=== PATIENT | male | born 1950 | race Caucasian/White ===

== ENCOUNTER → 2016-09-29 | Day surgery (SDC) | payer MEDICARE ==
[2016-09-29] VITALS (8 sets, daily range): BP systolic 78–129; BP diastolic 49–78
[~2016-09-29] VITALS: Ht 170.1 cm; Wt 70.3 kg
[~2016-09-29] MED LIST: ANTIVERT/2525 M1 PO; ASPIR-LOW81 MG PO; BLEPH-10 15 ML15 ML OPH; CARAFATE1 G1 PO; CIPROFLOXACIN500 MG PO; CITALOPRAM20 MG PO; DILT-CD240 MG PO; FISH OIL 10001000 MG PO; LEVOFLOXACIN500 MG PO; LORAZEPAM0.5 MG PO; OMNICEF300 MG PO; TYLENOL W/CODEI1 TA2 PO; VICODIN 5/500 505 MG PO; ZOCOR10 MG PO
--- NOTE | ~2016-09-29 | O ---
[place], [place] OPERATIVE NOTE NAME: HILTON VIDES UNIT #: [id number] ROOM: DOCTOR: ROSALIE MARTIN MD BIRTHDATE: [birth year] DOS: 10/07/2016 PREOPERATIVE DIAGNOSIS: Dysphonia left vocal cord cyst. POSTOPERATIVE DIAGNOSIS: Dysphonia left vocal cord cyst. PROCEDURE: Direct laryngoscopy with excision of left vocal cord cyst. SURGEON: Dr. Martin. ANESTHESIA: General endotracheal. ESTIMATED BLOOD LOSS: Zero. COMPLICATIONS: None. 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 He is being taken to the operating room for direct laryngoscopy with excision of left vocal cord cyst. DESCRIPTION OF PROCEDURE: Following induction of general endotracheal anesthesia, the patient was positioned supine on the OR table and draped in standard fashion for laryngoscopy. A Jennifer Berci laryngoscope was introduced. Examination of the oral cavity, oropharynx and hypopharynx was normal. Laryngeal exam showed a cyst in the mid portion of the left true vocal cord and micro laryngeal instrumentation was used for the excision of the cyst. A sickle knife was used to incise the left vocal cord mucosa. The cystic structure was encountered and marsupialized. No biopsy was obtained. Minimal bleeding was controlled with the application of epinephrine-soaked cottonoids patties. At the end of the case, all instrument and sponge counts were correct. The patient was awakened, extubated and transported to PACU in satisfactory condition. ROSALIE MARTIN MD CM:OPRECORD:OPERATIVE NOTE [id number] ROSALIE MARTIN MD 10/09/16 0819 interface
== END | disposition home or self-care (01) ==
LOC: SDC 09-25 13:15
DX: J38.7 Other diseases of larynx (principal); K21.9 Gastro-esophageal reflux disease without esophagitis; F41.9 Anxiety disorder, unspecified; F32.9 Major depressive disorder, single episode, unspecified; E78.00 Pure hypercholesterolemia, unspecified; Z85.828 Personal history of other malignant neoplasm of skin; N40.0 Benign prostatic hyperplasia without lower urinary tract symptoms

== ENCOUNTER → 2020-03-29 | Outpatient (CLI) | payer MEDICARE | END | disposition home or self-care (01) | LOC: US 03-25 11:40 | DX: N50.82 Scrotal pain (principal) ==

== ENCOUNTER → 2024-05-01 | Day surgery (SDC) | payer MEDICARE ==
[~2024-05-01] VITALS: Ht 167.6 cm; Wt 74.8 kg
[~2024-05-01] MED LIST changes: +Lactated Ringer's Solution 1,000 ML IV ONE; +Lactated Ringer's Solution 500 ML IV ONE; +Lidocaine Hydrochloride 5 ML VIAL IV ONE; +PROPOFOL 200 MG/20 ML VIAL IV ONE
[2024-05-01 12:21] VITALS: BP 112/67
[2024-05-01 12:36] VITALS: BP 117/73
== END | disposition home or self-care (01) ==
LOC: SDC 04-27 09:30
PROVIDERS: ATTEND Surgery
DX: Z12.11 Encounter for screening for malignant neoplasm of colon (principal); K64.8 Other hemorrhoids; E78.00 Pure hypercholesterolemia, unspecified; I10 Essential (primary) hypertension; F41.9 Anxiety disorder, unspecified; Z86.010 Personal history of colon polyps; Z98.890 Other specified postprocedural states; Z88.1 Allergy status to other antibiotic agents; Z79.82 Long term (current) use of aspirin; Z79.899 Other long term (current) drug therapy
CPT/HCPCS: 00812; G0105

== ENCOUNTER 2025-01-16 19:07 | Emergency (ER) | payer MEDICARE ==
[~2025-01-16] VITALS: Wt 74.8 kg
[~2025-01-16 19:07] MED LIST changes: -Lactated Ringer's Solution 1,000 ML IV ONE; -Lactated Ringer's Solution 500 ML IV ONE; -Lidocaine Hydrochloride 5 ML VIAL IV ONE; -PROPOFOL 200 MG/20 ML VIAL IV ONE
[2025-01-16 19:38] LABS: BASO # 0.1 10*3/uL (0.0-0.1); BASO % 0.8 % (0.0-1.0); EOS # 0.3 10*3/uL (0.0-0.4); EOS % 2.7 % (1.0-4.0); HEMATOCRIT 43.9 % (42.0-52.0); MEAN CELL VOLUME 83.8 fl (80.0-94.0); MEAN CORPUSCULAR HGB 27.7 pg (27.0-31.0); MEAN PLATELET VOLUME 9.3 fl (9.6-12.3); MONO # 0.8 10*3/uL (0.1-1.0); MONO % 8.5 % (3.0-9.0); NEUT # 6.9 10*3/uL (2.3-7.9); NEUT % 70.5 % (47.0-73.0); PLATELET COUNT AUTOMATED 281 10*3/uL (130-400); RED BLOOD COUNT 5.24 10*6/uL (4.50-5.90); RED CELL DISTRI WIDTH 12.9 % (0-14.5); WHITE BLOOD COUNT 9.8 10*3/uL (4.8-10.8)
[2025-01-16 20:01] LABS: ALKALINE PHOSPHATASE 82 U/L (46-116); BUN 18 mg/dl (9-23); CHLORIDE 104 mmol/L (98-107); POTASSIUM 3.9 mmol/L (3.4-5.1); SGPT/ALT 27 U/L (5-49); TOTAL PROTEIN 7.2 gm/dL (6.0-8.0)
[2025-01-16] MEDS ORDERED: ZOLOFT50 MG PO (20:10)
[2025-01-16] MEDS ORDERED: ROSUVASTATIN CA40 MG PO (20:11)
[2025-01-16] MEDS ORDERED: CLOPIDOGREL75 MG PO (20:12)
[2025-01-16] MEDS ORDERED: DILTIAZEM HYDR180 M2 PO (20:12)
[2025-01-17] MEDS ORDERED: ATORVASTATIN CALCIUM 40 MG TABLET ONE (02:29)
[2025-01-17] MEDS ORDERED: TIMOLOL MALEATE10 M1 OPH (06:43)
[2025-01-17] MEDS ORDERED: ATORVASTATIN CALCIUM 80 MG TAB PO SCH (22:00)
== END 2025-01-17 09:23 | disposition short-term general hospital (02) ==
LOC: ED 19:07
PROVIDERS: Nurse Practitioner Family
DX: G45.9 Transient cerebral ischemic attack, unspecified (principal); F41.9 Anxiety disorder, unspecified; K21.9 Gastro-esophageal reflux disease without esophagitis; F32.A Depression, unspecified; Z86.73 Personal history of transient ischemic attack (TIA), and cerebral infarction without residual deficits; Z88.1 Allergy status to other antibiotic agents; Z79.899 Other long term (current) drug therapy; Z79.82 Long term (current) use of aspirin